=== PATIENT | male | born 1965 | race Caucasian/White ===

== ENCOUNTER 2017-12-24 14:47 | Emergency (ER) | payer BC ==
[~2017-12-24] VITALS: Ht 175.3 cm; Wt 118.8 kg
[2017-12-24 15:16] LABS: HEMATOCRIT 45.5 % (38.0-50.0); HEMOGLOBIN 16.2 G/DL (12.5-16.6); MCHC 35.6 G/DL (30.0-36.0); PLATELET COUNT 281 K/uL (156-360); RBC DIS.WIDTH-CV 12.1 % (11.8-14.6); RBC DIS.WIDTH-SD 38.8 % (39-53); RED BLOOD COUNT 5.23 M/uL (4.00-5.50)
[2017-12-24 15:24] LABS: CHLORIDE 104 mEq/L (99-109); POTASSIUM 3.9 mEq/L (3.7-5.4); SODIUM 140 mEq/L (136-147)
[2017-12-24 15:26] LABS: GLUCOSE 179 mg/dL (70-99)
[2017-12-24 15:30] LABS: GFR ESTIMATE (CALCULATED) > 59 mL/min/ (58.99-99999); UREA NITROGEN (BUN) 22 mg/dL (9-23)
[2017-12-24 15:36] LABS: TROP-I INTERPRETATION NEGATIVE; TROPONIN-I < 0.01 ng/mL (0.0-0.30)
[2017-12-24 17:40] LABS: THYROTROPIN (TSH) 4.3 MIU/L (0.4-5.5)
[2017-12-24 18:37] VITALS: BP 121/87
== END 2017-12-24 18:39 | disposition home or self-care (01) ==
LOC: EME 14:47
DX: I49.3 Ventricular premature depolarization (principal); R00.2 Palpitations; I10 Essential (primary) hypertension; E11.9 Type 2 diabetes mellitus without complications; F17.200 Nicotine dependence, unspecified, uncomplicated
CPT/HCPCS: 71046; 80048; 83735; 84439; 84443; 84484; 85027; 93005; 99281; 99284